=== PATIENT | male | born 1995 | race Caucasian/White ===

== ENCOUNTER 2019-10-18 03:45 | Emergency (ER) | payer OTHER ==
[~2019-10-18] VITALS: Ht 170.2 cm; Wt 86.2 kg
--- NOTE | 2019-10-18 03:48 | NUR ---
PT AMBULATED TO [facility] W/ OFFICER
[2019-10-18 03:52] VITALS: BP 154/98
--- NOTE | 2019-10-18 04:00 | NUR ---
NO NURSING INTERVENTIONS ORDERED BY ERMD GOODSON
--- NOTE | 2019-10-18 04:01 | NUR ---
PT DC'D BACK TO [facility] OFFICER [employer]. VSS. WRISTBAND REMOVED FROM [facility]. OFFICER [place] BADGE NUMBER [id number]
== END 2019-10-18 04:00 | disposition home or self-care (01) ==
LOC: MED 03:45
DX: Z04.1 Encounter for examination and observation following transport accident (principal); Z02.89 Encounter for other administrative examinations
CPT/HCPCS: 99283